=== PATIENT | male | born 1940 | race Two or more races ===

== ENCOUNTER → 2019-04-27 | Outpatient (CLI) | payer MEDICARE ==
[~2019-04-27] MED LIST: IOPAMIDOL 370 MG/ML 200 ML INFUS..BTL INJ ONE; SODIUM CHLORIDE 0.9% 50ML 50 ML ONE
[2019-04-27 15:35] LABS: BLOOD UREA NITROGEN 10 mg/dL (7-26); BUN/CREATININE RATIO 11 (6-25); CREATININE, SERUM 0.94 mg/dL (0.72-1.25); EST GLOMERULAR FILTRATION RATE > 60 ML/MIN (60-)
--- NOTE | 2019-04-27 17:29 | Diagnostic Imaging Report ---
EXAM: CT Enterography Abdomen and Pelvis WITH intravenous contrast INDICATION: Small intestine mass seen on capsule endoscopy. COMPARISON: None. TECHNIQUE: Abdomen and pelvis were scanned utilizing a multidetector helical scanner from the lung base to the pubic symphysis after administration of IV contrast. Coronal and sagittal reformations were obtained. CT enterography protocol was performed. Scan was performed when during portal venous phase. IV CONTRAST: 100 mL of Isovue-370 ORAL CONTRAST: Volumen 1350mL COMPLICATIONS: None RADIATION DOSE: Total DLP: 594.27 mGy*cm Dose modulation, iterative reconstruction, and/or weight based adjustment of the mA/kV was utilized to reduce the radiation dose to as low as reasonably achievable. FINDINGS: LOWER THORAX: Minimal bibasilar subsegmental atelectasis. Trace left pleural effusion. Atherosclerotic coronary artery calcifications. HEPATOBILIARY: Diffuse hypoattenuation of the hepatic parenchyma consistent with mild hepatic steatosis. No focal liver lesions. No biliary ductal dilatation. The gallbladder appears unremarkable. SPLEEN: No splenomegaly. PANCREAS: No focal masses or ductal dilatation. ADRENALS: No adrenal nodules. KIDNEYS/URETERS: No hydronephrosis, stones, or solid mass lesions. PELVIC ORGANS/BLADDER: Mild prostate enlargement measuring up to 5.1 cm. The bladder is decompressed. PERITONEUM / RETROPERITONEUM: No free air or fluid. LYMPH NODES: No lymphadenopathy. VESSELS: Atherosclerotic calcifications involve the abdominal aorta and major branches. GI TRACT: In the mid to distal jejunum, on series 3 image 100, there is a fat density mass causing luminal indentation on the bowel. No focal bowel wall thickening or distention. BONES AND SOFT TISSUES: Mild degenerative changes of the visualized spine. No suspicious lytic or blastic lesions. IMPRESSION: 1. 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 2. Hepatic steatosis. 3. Atherosclerotic coronary artery calcifications. Trace left pleural effusion. Signed by: Jeannette Sellers MD on 04/27/2019 5:25 PM
== END ==
LOC: CT 14:24
PROVIDERS: ATTEND Internal Medicine
DX: R19.09 Other intra-abdominal and pelvic swelling, mass and lump (principal); K76.0 Fatty (change of) liver, not elsewhere classified; J90 Pleural effusion, not elsewhere classified
CPT/HCPCS: 36415; 74177; 82565; 84520; Q9967